=== PATIENT | female | born 2000 | race Caucasian/White ===

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

== ENCOUNTER 2021-08-09 12:10 | Emergency (ER) | payer BC, SELFPAY ==
[2021-08-09 13:25] VITALS: BP 124/77; PULSE 79; RESP 19; TEMP 36.4; O2SAT 98; BMI 26.7
--- NOTE | 2021-08-09 13:47 | HMH.EDUTC ---
[facility] [place] Disposition Condition on Discharge: Fair Time of Disposition: 13:53 <Mragie Fisher E - Last Filed: 08/09/21 13:52> <Dewey Payan - Last Filed: 08/09/21 20:13> Clinical Impression: Abdominal pain Qualifiers: Abdominal location: unspecified location Qualified Code(s): R10.9 - Unspecified abdominal pain Nausea and vomiting Qualifiers: Vomiting type: unspecified Qualified Code(s): R11.2 - Nausea with vomiting, unspecified Disposition: Home, Self-Care Additional Instructions: Please return to the ED for any new or worsening symptoms. Prescriptions: Sucralfate [Carafate 1gm/10mL Susp] 1 gm PO ACHS #200 ml Transmission Status: Received by [facility] Pantoprazole Sodium [Protonix 20mg Tab] 20 mg PO DAILY #14 tab Transmission Status: Received by [facility] Ondansetron [Zofran 4mg ODT] 4 mg PO TIDP PRN #12 tab PRN Reason: Nausea Transmission Status: Received by [facility] Referrals: Zen Ghosh MD [Primary Care Provider] - Medical Decision Making - Mitul Inquiry Pt receiving controlled substance: No Mitul was queried for this patient: No <Margie Fisher - Last Filed: 08/09/21 13:52> - Lab Data Result diagrams: 08/09/21 14:35 08/09/21 14:35 <Dewey Payan - Last Filed: 08/09/21 20:13> Vital Signs: 08/09/21 13:25 08/09/21 14:22 08/09/21 14:48 Temperature 97.6 F 98.7 F Temperature Source Oral Oral Pulse Rate 85 Pulse Rate [Left Brachial] 79 84 Respiratory Rate 19 16 Blood Pressure 144/72 H Blood Pressure [Left Arm] 124/77 127/89 Blood Pressure Mean 103 Blood Pressure Mean [Left Arm] 92 101 Blood Pressure Source [Left Arm] Automatic Cuff Blood Pressure Position Blood Pressure Position [Left Arm] Sitting 02 Sat by Pulse Oximetry 98 98 98 Oxygen Delivery Method Room Air Room Air 08/09/21 15:48 08/09/21 16:19 Temperature 98 F Temperature Source Oral Pulse Rate 90 78 Pulse Rate [Left Brachial] Respiratory Rate 16 Blood Pressure 133/77 112/65 Blood Pressure [Left Arm] Blood Pressure Mean 95 Blood Pressure Mean [Left Arm] Blood Pressure Source [Left Arm] Blood Pressure Position Sitting Blood Pressure Position [Left Arm] 02 Sat by Pulse Oximetry 99 Oxygen Delivery Method Room Air - Lab Data Lab Results 08/09/21 14:35: WBC 15.6 H, RBC 4.85, Hgb 13.9, Hct 41.8, MCV 86.1, MCH 28.7, MCHC 33.3, RDW 13.7, Plt Count 264, MPV 8.1, Neut % (Auto) 91.1 H, Lymph % (Auto) 3.7 L, [place] % (Auto) 2.7, Eos % (Auto) 0.7, Baso % (Auto) 1.8, Neut # (Auto) 14.2 H, Lymph # (Auto) 0.6 L, [place] # (Auto) 0.4, Eos # (Auto) 0.1, Baso # (Auto) 0.3 H, Total Counted 100, Neutrophils % (Manual) 86 H, Band Neutrophils % 1.0, Lymphocytes % (Manual) 9 L, Monocytes % (Manual) 4, Platelet Estimate Normal, RBC Morphology Normal 08/09/21 14:35: Sodium 139, Potassium 4.0, Chloride 103, Carbon Dioxide 26, Anion Gap 14.0, BUN 10, Creatinine 0.60, Estimated Creat Clear 182, Estimated GFR 127, Est GFR ( Amer) 154, Glucose 103 H, Calcium 10.1, Total Bilirubin 0.8, AST 27, ALT 19, Alkaline Phosphatase 103, Total Protein 9.0 H, Albumin 5.2 H, Globulin 3.8 H, Albumin/Globulin Ratio 1.4, Lipase 68 08/09/21 14:35: Serum HCG, Qual Negative Orders (Tests/Meds): ED MEDICATIONS Discontinued Medications Generic Name Dose Route Start Last Admin Trade Name Freq PRN Reason Stop Dose Admin Belladonna Alkaloids 60 ml 08/09/21 14:55 08/09/21 15:02 Gi Cocktail 60ml Udc PO 08/09/21 14:56 60 ml ONCE ONE Administration ORDERS Category Date Time Status Urinalysis and Microscopic Stat Lab 08/09/21 14:30 Ordered Medical Decision Narrative: Due to patient complaining of pain in abdomen discussed with patient about transfer to the ED for further work up and evaluation and patient agreed spoke with Paulette PATTERSON Patient awaiting room assignment in the ED (Margie Fisher) Please refer to written the ED general note in separate documen
--- NOTE | 2021-08-09 14:16 | PC.NURSE ---
PATIENT SENT TO ER PER Karla STRATTON APRN FOR FURTHER EVALUATION. REPORT GIVEN TO Savita GRIFFIN RN BY Karla STRATTON APRN
[2021-08-09 14:22] VITALS: BP 127/89; PULSE 84; RESP 16; TEMP 37.1; O2SAT 98; BMI 28.3
[2021-08-09 14:47] LABS: Basophils # 0.3 K/mm3 (0-0.2); Basophils % 1.8 % (0.1-2.0); Eosinophils # 0.1 K/mm3 (0.0-0.4); Eosinophils % 0.7 % (0.1-12.0); Hematocrit 41.8 % (37.0-47.0); Hemoglobin 13.9 g/dL (12.2-16.2); Lymphocytes # 0.6 K/mm3 (0.7-4.5); Lymphocytes % 3.7 % (10-50); Mean Corpuscular HGB Conc 33.3 g/dL (31.8-35.4); Mean Corpuscular Hemoglobin 28.7 pg (27.0-31.2); Mean Corpuscular Volume 86.1 fl (81-99); Mean Platelet Volume 8.1 fl (7.4-10.4); Monocytes # 0.4 K/mm3 (0.1-1.0); Monocytes % 2.7 % (1.7-9.3); Neutrophils # 14.2 K/mm3 (1.8-7.8); Neutrophils % 91.1 % (37.0-80.0); Platelet Count 264 K/mm3 (142-424); Red Blood Count 4.85 M/mm3 (4.20-5.40); Red Cell Distribution Width 13.7 % (11.5-17.5); White Blood Count 15.6 K/mm3 (4.5-13.0)
[2021-08-09 14:48] VITALS: BP 144/72; PULSE 85; O2SAT 98
[2021-08-09 14:56] LABS: Chloride 103 mmol/L (98-107); Sodium 139 mmol/L (136-145)
[2021-08-09 14:58] LABS: Blood Urea Nitrogen 10 mg/dl (7-17)
[2021-08-09 14:59] LABS: Alanine Aminotransferase 19 U/L (12-78); Albumin Level 5.2 g/dl (3.5-5.0); Albumin/Globulin Ratio 1.4 (1.1-1.8); Alkaline Phosphatase 103 U/L (38-126); Aspartate Amino Transferase 27 U/L (14-36); Bilirubin,Total 0.8 mg/dl (0.2-1.3); Calcium 10.1 mg/dl (8.4-10.2); Carbon Dioxide 26 mmol/L (22.0-30.0); Creatinine Clearance Estimated 182 mL/min (50-200); Estimated Glomerular Filt Rate 127 ml/min (>60); GFR (African American) 154 ML/MIN (>60); Globulin 3.8 g/dL (1.3-3.2); Glucose 103 mg/dl (74-100); Lipase 68 U/L (23-300)
[2021-08-09 15:17] LABS: MANUAL DIFFERENTIAL MANUAL DIFFERENTIAL (MANUAL DIFF)
[2021-08-09 15:35] LABS: HCG Qualitative, Serum Negative (Negative)
[2021-08-09 15:48] VITALS: BP 133/77; PULSE 90; O2SAT 99
[2021-08-09 15:51] LABS: Lymphocytes % 9 % (10-50); Monocytes % 4 % (2-9); Neutrophils % 86 % (42-76); Platelet Estimate Normal; RBC Morphology Normal; Total Cells Counted 100
--- NOTE | 2021-08-09 15:52 | HMH.EDGENADL ---
ED Disposition Clinical Impression: Abdominal pain Qualifiers: Abdominal location: unspecified location Qualified Code(s): R10.9 - Unspecified abdominal pain Nausea and vomiting Qualifiers: Vomiting type: unspecified Qualified Code(s): R11.2 - Nausea with vomiting, unspecified Disposition: Home, Self-Care Condition on Discharge: Good Additional Instructions: Please return to the ED for any new or worsening symptoms. Prescriptions: Sucralfate [Carafate 1gm/10mL Susp] 1 gm PO ACHS #200 ml Transmission Status: Pending to [facility] Pantoprazole Sodium [Protonix 20mg Tab] 20 mg PO DAILY #14 tab Transmission Status: Pending to [facility] Ondansetron [Zofran 4mg ODT] 4 mg PO TIDP PRN #12 tab PRN Reason: Nausea Transmission Status: P[facility] to [facility] Referrals: Zen Ghosh MD [Primary Care Provider] - - Critical Care Critical Care Time: No Attestation: On 08/09/21, the high probability of a clinically significant, sudden or life threatening deterioration of the following system(s) required my full and direct attention, intervention and personal management. The time I documented below is in addition to time spent performing reported procedures but includes the following listed in this critical care notation. Medical Decision Making - Medical Records Medical records reviewed: Yes: I reviewed the patient's medical records. - Mitul Inquiry Pt receiving controlled substance: No Vital Signs: 08/09/21 13:25 08/09/21 14:22 08/09/21 14:48 Temperature 97.6 F 98.7 F Temperature Source Oral Oral Pulse Rate 85 Pulse Rate [Left Brachial] 79 84 Respiratory Rate 19 16 Blood Pressure 144/72 H Blood Pressure [Left Arm] 124/77 127/89 Blood Pressure Mean 103 Blood Pressure Mean [Left Arm] 92 101 Blood Pressure Source [Left Arm] Automatic Cuff Blood Pressure Position [Left Arm] Sitting 02 Sat by Pulse Oximetry 98 98 98 Oxygen Delivery Method Room Air Room Air 08/09/21 15:48 Temperature Temperature Source Pulse Rate 90 Pulse Rate [Left Brachial] Respiratory Rate Blood Pressure 133/77 Blood Pressure [Left Arm] Blood Pressure Mean 95 Blood Pressure Mean [Left Arm] Blood Pressure Source [Left Arm] Blood Pressure Position [Left Arm] 02 Sat by Pulse Oximetry 99 Oxygen Delivery Method - Lab Data Lab Results 08/09/21 14:35: WBC 15.6 H, RBC 4.85, Hgb 13.9, Hct 41.8, MCV 86.1, MCH 28.7, MCHC 33.3, RDW 13.7, Plt Count 264, MPV 8.1, Neut % (Auto) 91.1 H, Lymph % (Auto) 3.7 L, [place] % (Auto) 2.7, Eos % (Auto) 0.7, Baso % (Auto) 1.8, Neut # (Auto) 14.2 H, Lymph # (Auto) 0.6 L, [place] # (Auto) 0.4, Eos # (Auto) 0.1, Baso # (Auto) 0.3 H, Total Counted 100, Neutrophils % (Manual) 86 H, Band Neutrophils % 1.0, Lymphocytes % (Manual) 9 L, Monocytes % (Manual) 4, Platelet Estimate Normal, RBC Morphology Normal 08/09/21 14:35: Sodium 139, Potassium 4.0, Chloride 103, Carbon Dioxide 26, Anion Gap 14.0, BUN 10, Creatinine 0.60, Estimated Creat Clear 182, Estimated GFR 127, Est GFR ( Amer) 154, Glucose 103 H, Calcium 10.1, Total Bilirubin 0.8, AST 27, ALT 19, Alkaline Phosphatase 103, Total Protein 9.0 H, Albumin 5.2 H, Globulin 3.8 H, Albumin/Globulin Ratio 1.4, Lipase 68 08/09/21 14:35: Serum HCG, Qual Negative Result diagrams: 08/09/21 14:35 08/09/21 14:35 Orders (Tests/Meds): ED MEDICATIONS Discontinued Medications Generic Name Dose Route Start Last Admin Trade Name Freq PRN Reason Stop Dose Admin Belladonna Alkaloids 60 ml 08/09/21 14:55 08/09/21 15:02 Gi Cocktail 60ml Udc PO 08/09/21 14:56 60 ml ONCE ONE Administration ORDERS Category Date Time Status Urinalysis and Microscopic Stat Lab 08/09/21 14:30 Ordered Medical Decision Narrative: Patient is a 21-year-old female presenting to the ED today for further evaluation of epigastric abdominal pain, patient is well-appearing on initial valuation, no
[2021-08-09 16:19] VITALS: BP 112/65; PULSE 78; RESP 16; TEMP 36.6; O2SAT 98
== END 2021-08-09 16:21 | disposition home or self-care (01) ==
LOC: UTC 13:52 → ER 14:16
PROVIDERS: Student in an Organized Health Care Education/Training Program; Emergency Provider Nurse Practitioner; PCP Family Medicine
DX: R10.12 Left upper quadrant pain (principal); R10.13 Epigastric pain
CPT/HCPCS: 80053; 83690; 84703; 85007; 85025; 99283